=== PATIENT | female | born 1980 | race Caucasian/White ===

== ENCOUNTER → 2018-01-02 | Outpatient (CLI) | payer OTHER ==
[~2018-01-02] VITALS: Ht 162.6 cm; Wt 81.6 kg
[~2018-01-02] MED LIST: LIDOCAINE 1% INJ 20 ML 20 ML VIAL INJ ONE
--- NOTE | 2018-01-02 13:39 | Diagnostic Imaging Report ---
INDICATION: Breast calcifications. The patient presents for a stereotactic biopsy. TECHNIQUE: The patient was brought to the stereotactic room and placed in a chair in a sitting upright position. The left breast was positioned in a lateral medial position. The skin of the lateral left breast was prepped and draped in the usual sterile fashion. A small amount of 1% lidocaine was utilized for local anesthesia. The calcifications in the superior and outer left breast were stereotactically targeted. A total of four core biopsies was obtained with an 8-gauge needle and a vacuum-assisted device. The specimen radiograph did show a cluster of calcifications in core sample 3. A marker clip was then deployed. Hemostasis was obtained using manual compression. The patient tolerated the procedure well. IMPRESSION: Stereotactic left breast biopsy using a vacuum assisted device. The Pathology results are currently pending. Dictated by: Dictated on workstation # [id number]
--- NOTE | 2018-01-02 13:41 | Diagnostic Imaging Report ---
INDICATION: Left breast calcifications. The patient presents for additional views. TECHNIQUE: Unilateral left 2D and 3D diagnostic mammography was performed including CC and ML views as well as magnification CC and ML views. FINDINGS: There is an indeterminate cluster of microcalcifications in the upper outer left breast at posterior depth. No associated soft tissue mass is seen. IMPRESSION: Indeterminate cluster of microcalcifications in the upper outer left breast. Tissue sampling is recommended. The patient is scheduled for a stereotactic biopsy later this morning. Dictated by: Dictated on workstation # [id number]
== END ==
LOC: RAD 09:36
PROVIDERS: ATTEND Nurse Practitioner Women's Health
DX: C50.912 Malignant neoplasm of unspecified site of left female breast (principal)
CPT/HCPCS: 19081; 88305; 88360